=== PATIENT | female | born 1985 | race Caucasian/White ===

== ENCOUNTER 2017-02-06 06:16 | Emergency (ER) | payer BC ==
[2017-02-06 06:29] VITALS: BP 114/74; BMI 21.4
[2017-02-06] MEDS ORDERED: TORADOL 30 MG VIAL ONE (06:29)
[2017-02-06] MEDS ORDERED: NS 1000 ML 1,000 ML ONE (06:29)
[2017-02-06] MEDS ORDERED: ZOFRAN INJ 4 MG VIAL IVP ONE (06:30)
[2017-02-06] MEDS ORDERED: NS 1000 ML 1,000 ML IV ONE (06:30)
[2017-02-06] MEDS ORDERED: MORPHINE SULFATE INJ 4 MG IVP ONE (06:30)
[2017-02-06] MEDS ORDERED: ZOFRAN INJ 4 MG VIAL ONE (06:30)
[2017-02-06] MEDS ORDERED: MORPHINE SULFATE INJ 4 MG ONE (06:30)
[2017-02-06] MEDS ORDERED: TORADOL 30 MG VIAL IVP ONE (06:30)
--- NOTE | 2017-02-06 06:49 | DR.GENAD ---
HPI - PCP Primary Care Physician: MARTA - Complaint/Symptoms Chief Complaint Doctors Comments: Patient with right flank pain, she has a history of kidney stones. Onset of symptoms one hour prior to being seen. Chief Complaint:: PT LT FLANK AND LT LOWER QUAD PAIN PT HAS HX OF KIDNEY STONES - Source History Provided: Patient - Mode of Arrival Mode of Arrival: Ambulatory - Timing Onset of Chief Complaint: 02/06/17 PMH - PMH Past Medical History: Yes Past Medical History: Kidney Stones Past Medical History Comment: PCOD Past Surgical History: Yes Surgical History: [employer] Surgery, Tonsillectomy - Family History History of Family Medical Conditions: No - Social History Does patient currently use any type of tobacco product: No Have you used tobacco products in the last 12 months: No Type of Tobacco Use: None Do you use any recreational Drugs:: No Lives With: Family Lives Where: Home - infectious screening In the last 2 months have you had wt loss of >10#?: NO Have you had fever, night sweats or hemotysis?: No Have you traveled outside the country in the last 6 months?: No Isolation: Standard ROS - Review of Systems Constitutional: No Symptoms Reported Eyes: No Symptoms Reported ENTM: No Symptoms Reported Respiratoy: No Symptoms Reported Cardiovascular: No Symptoms Reported Gastrointestinal/Abdominal: No Symptoms Reported Genitourinary: No Symptoms Reported Neurological: No Symptoms Reported Musculoskeletal: No Symptoms Reported Integumentary: No Symptoms Reported Hematologic/Lymphatic: No Symptoms Reported Endocrine: No Symptoms Reported Psychiatric: No Symptoms Reported All Other Systems: Reviewed and Negative PE - Vital Signs Vitals: Temperature 97.8 F Pulse Rate 119 Respiratory Rate 18 Blood Pressure 114/74 O2 Sat by Pulse Oximetry 100 - General General Appearance: Alert, In No Apparent Distress - Head Head Exam: Normal Inspection, Atraumatic - Eyes Eye exam: Normal Appearance, PERRL, EOMI - ENT ENT Exam: Normal Exam External Ear Exam: Normal External Inspection TM/Canal Exam: Bilateral Normal Nose Exam: Normal Nose Exam, Sinus Tenderness Mouth Exam: Normal Inspection, Drooling Throat Exam: Normal Inspection - Neck Neck Exam: Normal Inspection, Full ROM - Chest Chest Inspection: Normal Inspection - Respiratory Respiratory Exam: Normal Lung Sounds Bilat Respiratory Exam: Bilateral Clear to Auscultation - Cardiovascular Cardiovascular Exam: Regular Rate, Normal Rhythm - Abdominal Exam Abdominal Exam: Normal Inspection, Normal Bowel Sounds Abdominal Tenderness: negative: RUQ, RLQ, LUQ, LLQ, Epigastrium, Suprapubic, Diffuse, Mild, Moderate, Severe, Other - Extremities Extremities Exam: Normal Inspection - Back Back Exam: Normal Inspection, Full ROM, (R) CVA Tenderness - Neurologic Neurological Exam: Alert, Oriented X3, CN II-XII Intact - Psychiatric Psychiatric Exam: Normal Affect, Normal Mood - Skin Skin Exam: Warm, Dry, Intact ROR - XRAY XRAY Interpreted by: Radiologist (Right lower pole 2mm nonobstructing stone, 3mm nonobstructing renal calculus left; left sided hydronephrosis to a 5mm calculus) - Diagnosis Discharge Problem: left sided hydronephrosis - Discharge Plan Condition: Stable - Follow ups/Referrals Follow ups/Referrals: JOSÉ MIGUEL LOZANO [Primary Care Provider] - 3 days - Instructions
[2017-02-06] MEDS ORDERED: DILAUDID INJ ONE (06:54)
[2017-02-06] MEDS ORDERED: DILAUDID INJ IVP ONE (06:54)
--- NOTE | 2017-02-06 07:37 | CT ---
HISTORY: Left flank pain Study: CT abdomen pelvis without contrast Comparison: None Technique: Axial noncontrast images with coronal and sagittal reformats. Dose reduction procedures we re used with mA/kv adjusted for body size. Findings: The lung bases are clear. The liver, spleen, adrenal glands, and pancreas are within normal limits to the limitations of an unenhanced examination. No opaque stones are visible within the gallbladder. T he right kidney is unobstructed. There is a 2 mm nonobstructing right lower pole renal calculus. No r ight ureteral calculus was identified. There is a 3 mm nonobstructing left renal calculus present. Th ere is left-sided hydroureteronephrosis proximal to a 5 mm calculus located at or near the left urete rovesical junction. No enlarged intraperitoneal or retroperitoneal lymphadenopathy is identified. The re are no findings suggestive of diverticulitis or colitis. The appendix is normal. Examination of th e pelvis demonstrated no evidence for pelvic masses, pelvic fluid, or pelvic lymphadenopathy. No defi nite bladder abnormality is identified however evaluation the bladder is limited as the bladder is ne gordo empty. No lytic or blastic skeletal lesions are identified. IMPRESSION: 5 mm mildly obstructing distal left ureteral calculus located at or near the left ureterovesical junc tion Bilateral nonobstructing renal calculi as described Reported By:
== END 2017-02-06 08:09 | disposition home or self-care (01) ==
LOC: ER 06:16
DX: N13.39 Other hydronephrosis (principal)
CPT/HCPCS: 74176; 96365; 96374; 96375; 99282; 99283; A4222; J1885; J2270; J2405

== ENCOUNTER → 2017-06-14 | Outpatient (CLI) | payer BC | LOC: RT 12:19 | PROVIDERS: ATTEND Internal Medicine Cardiovascular Disease | DX: R07.89 Other chest pain (principal) | CPT/HCPCS: 93005; 93010 ==

== ENCOUNTER → 2017-06-18 | Outpatient (CLI) | payer BC | LOC: RAD 12:38 | PROVIDERS: ATTEND Internal Medicine Cardiovascular Disease | DX: R06.02 Shortness of breath (principal) | CPT/HCPCS: 93306 ==

== ENCOUNTER → 2017-06-25 | Outpatient (CLI) | payer BC | LOC: RAD 12:52 | PROVIDERS: ATTEND Internal Medicine Cardiovascular Disease | DX: R07.89 Other chest pain (principal); R06.09 Other forms of dyspnea | CPT/HCPCS: 93017 ==